=== PATIENT | female | born 1985 | race Caucasian/White ===

== ENCOUNTER 2021-05-30 19:11 | Emergency (ER) | payer BC ==
[~2021-05-30] VITALS: Ht 149.9 cm; Wt 56.7 kg
== END 2021-05-30 20:08 | disposition home or self-care (01) ==
LOC: ER 19:11
DX: S01.82XA Laceration with foreign body of other part of head, initial encounter (principal); V29.9XXA Motorcycle rider (driver) (passenger) injured in unspecified traffic accident, initial encounter; Y93.89 Activity, other specified; Y92.488 Other paved roadways as the place of occurrence of the external cause; Y99.8 Other external cause status